=== PATIENT | female | born 1980 | race Caucasian/White ===

== ENCOUNTER 2017-12-13 07:05 | Day surgery (SDC) | payer MEDICAID ==
[~2017-12-13 07:05] MED LIST: Lactated Ringers 1,000 ML IV SCH; Sodium Chloride 0.9% 10 ML Syringe FLUSH PRN
[2017-12-13] MEDS ORDERED: Ondansetron 4 MG/2 ML SDV IVPUSH ONE (08:00)
[2017-12-13] MEDS ORDERED: Propofol 200 MG/20 ML SDV IV ONE (08:00)
[2017-12-13] MEDS ORDERED: Lactated Ringers 1,000 ML IV ONE (08:00)
[2017-12-13] MEDS ORDERED: Midazolam 1 MG/ML 2 ML SDV IV ONE (08:00)
[2017-12-13] MEDS ORDERED: HYDROmorphone 2 MG/ML SDV IV ONE (08:00)
[2017-12-13] MEDS ORDERED: fentaNYL 100 MCG/2 ML SDV IV ONE (08:00)
--- NOTE | 2017-12-13 08:15 | PCM.HPR ---
H & P Addendum review - H & P Addendum Review Date of Original H & P: 11/22/17 Date Reviewed: 12/13/17 Time Reviewed: 08:00 Patient was Examined: No Changes
[2017-12-13] MEDS ORDERED: Lidocaine 1% with EPINEPHrine 1:100,000 20 ML MDV INJECT ONE (08:22)
[2017-12-13] MEDS ORDERED: Bupivacaine 0.25% 30 ML SDV INJECT ONE (08:22)
--- NOTE | 2017-12-13 09:39 | PCM.OPNOTE ---
- General Post-Op/Procedure Note Date of Surgery/Procedure: 12/13/17 Operative Procedure(s): High Ligation R Sapheno-femoral Jct Pre Op Diagnosis: R Varicose Veins Post-Op Diagnosis: Same Anesthesia Technique: General LMA, Local Primary Surgeon: Hardy MARTINEZ in mLs: 20 Complications: None Condition: Good
[2017-12-13] MEDS ORDERED: Acetaminophen/HYDROcodone 325-5 MG Tab PO ONE (10:27)
--- NOTE | 2017-12-13 11:59 | OR ---
DATE OF OPERATION: 12/13/2017 SURGEON: Hardy Zaragoza MD PREOPERATIVE DIAGNOSIS: Symptomatic right varicose veins. POSTOPERATIVE DIAGNOSIS: Symptomatic right varicose veins. PROCEDURE PERFORMED: High ligation at the right saphenofemoral junction. ANESTHESIA: Local with IV sedation converted to general. DESCRIPTION OF PROCEDURE: The patient was brought to the operating room, where she was placed in the supine position. Right groin area was prepped with ChloraPrep and draped sterilely. A 50:50 mixture of 1% Lidocaine with epinephrine and 0.25% Marcaine was infiltrated. An incision was made just below the groin crease and extended through the subcutaneous tissue. The greater saphenous vein was identified. There were many small branches present, coming off the greater saphenous vein and near the saphenofemoral junction. Approximately 8 to 10 of these were divided between hemostats and tied with #3-0 Vicryl. I could follow the greater saphenous vein to the saphenofemoral junction and identified the fossa ovalis. Several of the branches were coursing laterally and it appeared that these were likely the responsibility for her remaining symptomatic varicose vein, since the greater saphenous vein was competent on a recent ultrasound. The wound was closed in 2 layers with #3-0 Vicryl subcutaneous sutures and then a running #4-0 Vicryl subcuticular suture. Benzoin and Steri-Strips were placed and sterile dressing applied. The patient tolerated the procedure well. ESTIMATED BLOOD LOSS: 20 mL. DISPOSITION: She returned to Postanesthesia in a stable condition. /[id number]/[id number]
== END 2017-12-13 11:48 | disposition home or self-care (01) ==
LOC: FB.SDS 07:05
PROVIDERS: ATTEND Surgery
DX: I83.811 Varicose veins of right lower extremity with pain (principal); I10 Essential (primary) hypertension; F17.210 Nicotine dependence, cigarettes, uncomplicated; F41.9 Anxiety disorder, unspecified; Z79.899 Other long term (current) drug therapy; Z91.048 Other nonmedicinal substance allergy status
CPT/HCPCS: 81025; A9270-GY; J1170; J2250; J2405; J2704; J3010; J3490; J7120